=== PATIENT | male | born 1935 | race Caucasian/White ===

== ENCOUNTER 2016-12-01 10:47 | Inpatient (IN) | payer OTHER ==
[~2016-12-01] VITALS: Ht 172.7 cm; Wt 65.9 kg
[~2016-12-01 10:47] MED LIST: AML5T PO; ATOR20TA PO; CLOP75TA41 PO; GLIP-115 PO
[2016-12-01] MEDS ORDERED: SODIUM CHLORIDE 0.9% 1,000 ML IV ONE (14:19)
[2016-12-01 14:28] LABS: Basophils # (auto) 0 uL; Basophils % (auto) 0.5 % (0.0-2.0); Eosinophils # (auto) 0 uL; Eosinophils % (auto) 0.2 % (0.0-7.0); Hematocrit 36.2 % (41.0-53.0); Hemoglobin 11.8 g/dL (13.5-17.5); Lymphocytes # (auto) 0.6 uL; Lymphocytes % (auto) 7.4 % (10.0-50.0); Mean Corpuscular Hemoglobin 31.1 pg (28.0-32.0); Mean Corpuscular Hgb Conc. 32.7 g/dL (32.0-36.0); Mean Corpuscular Volume 95.2 fL (80.0-100.0); Mean Platelet Volume 8.1 fL (7.4-10.4); Monocytes # (auto) 0.4 uL; Monocytes % (auto) 4.6 % (0.0-12.0); Neutrophils # (auto) 6.9 uL; Neutrophils % (auto) 87.3 % (37.0-80.0); Platelet Count (auto) 151 10^3/uL (140-450); Red Cell Distribution Width 16.1 % (11.6-16.0); White Blood Cell 7.9 10^3/uL (4.4-10.8)
[2016-12-01 14:57] LABS: INR 1.04 (0.9-1.15); Partial Thromboplastin Time 25.3 sec (22.64-33.71); Prothrombin Time 10.7 sec (9.37-12.3)
[2016-12-01 15:06] LABS: BUN/Creatinine Ratio 15.5; Calcium 9.6 mg/dL (8.5-10.1); Potassium 4.5 mmol/L (3.5-5.1)
[2016-12-01 15:19] LABS: Magnesium 2.4 mg/dL (1.6-2.6)
[2016-12-01 16:13] LABS: Urine Bilirubin Negative (Negative); Urine Blood TRACE /uL (Negative); Urine Color Yellow (Yellow); Urine Glucose Normal (Normal); Urine Ketone Negative (Negative); Urine Nitrite Negative (Negative); Urine RBC 4 /hpf (0 - 3); Urine Squamous Epithelial Cell FEW /hpf (<5); Urine Urobilinogen Normal (Negative)
[2016-12-01] MEDS ORDERED: HYDROcodone-ACET 5/325MG TAB PO PRN (17:45)
[2016-12-01] MEDS ORDERED: ONDANSETRON HCL 4 MG/2 ML VIAL IV PRN (17:45)
[2016-12-01] MEDS ORDERED: ACETAMINOPHEN 325 MG TAB PO PRN (17:45)
[2016-12-01] MEDS ORDERED: TEMAZEPAM 15 MG CAP PO PRN (17:45)
[2016-12-01] MEDS ORDERED: DOCUSATE SOD 100 MG CAP PO PRN (17:45)
[2016-12-01] MEDS ORDERED: DEXTROSE (50%) 50ML SYRG IV PRN (17:45)
[2016-12-01] MEDS ORDERED: NITROGLYCERIN 0.4 MG SL TAB SL PRN (17:45)
[2016-12-01] MEDS ORDERED: MORPHINE SULF INJ 2 MG/ML SYRINGE 1ML IV PRN ×2 (17:45)
[2016-12-01] MEDS ORDERED: CLOPIDOGREL BISULFATE 75 MG TAB PO ONE (18:00)
[2016-12-01] MEDS ORDERED: amLODIPine BESYLATE 5 MG TAB PO ONE (18:00)
[2016-12-01] MEDS ORDERED: MULTIPLE VITAMIN TAB PO ONE (18:15)
[2016-12-01] MEDS: glipiZIDE 5 MG TAB PO SCH (18:29)
[2016-12-01] MEDS ORDERED: ENOXAPARIN SOD 40 MG/0.4 ML SYRINGE SC SCH (18:30)
[2016-12-01 19:50] VITALS: BP 160/73
[2016-12-01] MEDS: ATORVASTATIN 20 MG TAB PO SCH (21:41)
[2016-12-01] MEDS: FAMOTIDINE 20 MG TAB PO SCH (21:45)
[2016-12-01] MEDS: SODIUM CHLOR 0.9% PF (SALINE LOCK) 10ML VIAL IV SCH (21:45)
[2016-12-01] MEDS: ACCU-CHEK COMFORT CURVE STRIP VI SCH (21:52)
[2016-12-01] MEDS: InsuLIN REG 1unit/0.01ml Soln (100units/ml) SC SCH (21:53)
[2016-12-01 22:06] VITALS: BP 160/73
[2016-12-02 05:04] VITALS: BP 105/62
[2016-12-02 05:45] LABS: Basophils # (auto) 0 uL; Basophils % (auto) 0.3 % (0.0-2.0); Eosinophils # (auto) 0.1 uL; Eosinophils % (auto) 0.9 % (0.0-7.0); Hematocrit 30.7 % (41.0-53.0); Hemoglobin 10.2 g/dL (13.5-17.5); Lymphocytes % (auto) 16.5 % (10.0-50.0); Mean Corpuscular Hemoglobin 31.7 pg (28.0-32.0); Mean Corpuscular Hgb Conc. 33.4 g/dL (32.0-36.0); Mean Corpuscular Volume 94.9 fL (80.0-100.0); Monocytes # (auto) 0.5 uL; Monocytes % (auto) 9.2 % (0.0-12.0); Neutrophils # (auto) 4.4 uL; Neutrophils % (auto) 73.1 % (37.0-80.0); Platelet Count (auto) 158 10^3/uL (140-450); Red Cell Distribution Width 16.4 % (11.6-16.0)
[2016-12-02] MEDS: SODIUM CHLOR 0.9% PF (SALINE LOCK) 10ML VIAL IV SCH ×4 (06:14→22:00)
[2016-12-02] MEDS: ACCU-CHEK COMFORT CURVE STRIP VI SCH ×4 (06:17→21:32)
[2016-12-02] MEDS: InsuLIN REG 1unit/0.01ml Soln (100units/ml) SC SCH ×4 (06:17→21:32)
[2016-12-02 06:21] LABS: Albumin 3.8 g/dL (3.4-5.0); BUN/Creatinine Ratio 18.5; Bilirubin, Total 0.7 mg/dL (0.2-1.0); Calcium 8.9 mg/dL (8.5-10.1); Potassium 4.4 mmol/L (3.5-5.1); Total Protein 7.1 g/dL (6.4-8.2)
[2016-12-02] MEDS: glipiZIDE 5 MG TAB PO SCH (06:23)
[2016-12-02 09:00] VITALS: BP 139/78
[2016-12-02 11:17] LABS: Phosphorus 3.5 mg/dL (2.5-4.90); Uric Acid 3.7 mg/dL (3.5-7.2)
[2016-12-02] MEDS: MULTIPLE VITAMIN TAB PO SCH (11:36)
[2016-12-02] MEDS: ENOXAPARIN SOD 30 MG/0.3 ML SYRINGE SC SCH (11:36)
[2016-12-02] MEDS: CLOPIDOGREL BISULFATE 75 MG TAB PO SCH (11:36)
[2016-12-02] MEDS: FAMOTIDINE 20 MG TAB PO SCH ×2 (11:36→21:26)
[2016-12-02] MEDS: amLODIPine BESYLATE 5 MG TAB PO SCH (11:38)
[2016-12-02 13:00] VITALS: BP 153/84
[2016-12-02 17:00] VITALS: BP 141/72
[2016-12-02 21:14] LABS: Vitamin B12 298 pg/mL (211-911)
[2016-12-02 21:15] LABS: Temperature: 21.6 C (20.0-25.0)
[2016-12-02] MEDS: ATORVASTATIN 20 MG TAB PO SCH (21:26)
[2016-12-02 22:00] VITALS: BP 163/76
[2016-12-03] MEDS: SODIUM CHLOR 0.9% PF (SALINE LOCK) 10ML VIAL IV SCH ×2 (06:00→06:23)
[2016-12-03] MEDS: ACCU-CHEK COMFORT CURVE STRIP VI SCH ×2 (06:42→11:30)
[2016-12-03] MEDS: InsuLIN REG 1unit/0.01ml Soln (100units/ml) SC SCH ×2 (06:42→11:30)
[2016-12-03 07:50] LABS: Albumin 3.6 g/dL (3.4-5.0); BUN/Creatinine Ratio 21.2; Bilirubin, Total 0.6 mg/dL (0.2-1.0); Potassium 4.1 mmol/L (3.5-5.1); Total Protein 7.1 g/dL (6.4-8.2)
[2016-12-03] MEDS ORDERED: HALOPERIDOL LACTATE 5 MG/ML INJ VIAL IM PRN (08:30)
[2016-12-03] MEDS: FAMOTIDINE 20 MG TAB PO SCH (10:08)
[2016-12-03] MEDS: ENOXAPARIN SOD 30 MG/0.3 ML SYRINGE SC SCH (10:08)
[2016-12-03] MEDS: MULTIPLE VITAMIN TAB PO SCH (10:08)
[2016-12-03] MEDS: CLOPIDOGREL BISULFATE 75 MG TAB PO SCH (10:09)
[2016-12-03] MEDS: amLODIPine BESYLATE 5 MG TAB PO SCH (10:09)
[2016-12-03 12:06] VITALS: BP 151/76
[2016-12-04 22:10] LABS: Vitamin D 25-Hydroxy 26 ng/mL (.); Vitamin D-2 25-Hydroxy <1.0 ng/mL (.)
== END 2016-12-03 13:10 | disposition home or self-care (01) | DRG 65 ==
LOC: ER 10:48 → TELE 10:59 → TELE-EAST 19:40
PROVIDERS: ADMIT Internal Medicine; ATTEND Family Medicine
DX: I63.9 Cerebral infarction, unspecified (principal); I25.810 Atherosclerosis of coronary artery bypass graft(s) without angina pectoris; N17.9 Acute kidney failure, unspecified; G81.94 Hemiplegia, unspecified affecting left nondominant side; E11.649 Type 2 diabetes mellitus with hypoglycemia without coma; G30.9 Alzheimer's disease, unspecified; F02.80 Dementia in other diseases classified elsewhere, unspecified severity, without behavioral disturbance, psychotic disturbance, mood disturbance, and anxiety; E11.21 Type 2 diabetes mellitus with diabetic nephropathy; Z95.0 Presence of cardiac pacemaker; Z86.2 Personal history of diseases of the blood and blood-forming organs and certain disorders involving the immune mechanism; D63.8 Anemia in other chronic diseases classified elsewhere; E11.22 Type 2 diabetes mellitus with diabetic chronic kidney disease; E78.5 Hyperlipidemia, unspecified; E86.0 Dehydration; I12.9 Hypertensive chronic kidney disease with stage 1 through stage 4 chronic kidney disease, or unspecified chronic kidney disease; I25.119 Atherosclerotic heart disease of native coronary artery with unspecified angina pectoris; N18.3 Chronic kidney disease, stage 3 (moderate); Z82.49 Family history of ischemic heart disease and other diseases of the circulatory system; Z83.3 Family history of diabetes mellitus; M10.9 Gout, unspecified; Z80.0 Family history of malignant neoplasm of digestive organs; Z85.828 Personal history of other malignant neoplasm of skin; Z86.73 Personal history of transient ischemic attack (TIA), and cerebral infarction without residual deficits
CPT/HCPCS: 36415; 70450; 71020; 76775; 80048; 80053; 80320; 81001; 82043; 82306; 82570; 82607; 82746; 82962; 83036; 83735; 83970; 84100; 84300; 84443; 84484; 84550; 85025; 85049; 85379; 85610; 85730; 92610; 93005; 93306; 93886; 96360; 96361

== ENCOUNTER → 2017-04-30 | Outpatient (CLI) | payer OTHER | END | disposition home or self-care (01) | LOC: XYW 10:54 | PROVIDERS: ATTEND Internal Medicine Cardiovascular Disease | DX: I08.3 Combined rheumatic disorders of mitral, aortic and tricuspid valves (principal); I27.2 Other secondary pulmonary hypertension | CPT/HCPCS: 93306 ==

== ENCOUNTER → 2017-09-18 | Outpatient (CLI) | payer OTHER ==
[2017-09-18 12:29] LABS: Basophils # (auto) 0 uL; Basophils % (auto) 0.5 % (0.0-2.0); Eosinophils # (auto) 0.1 uL; Eosinophils % (auto) 1.3 % (0.0-7.0); Hematocrit 36.5 % (41.0-53.0); Hemoglobin 12.7 g/dL (13.5-17.5); Lymphocytes # (auto) 0.7 uL; Lymphocytes % (auto) 10.4 % (10.0-50.0); Mean Corpuscular Hemoglobin 33.7 pg (28.0-32.0); Mean Corpuscular Hgb Conc. 34.8 g/dL (32.0-36.0); Mean Corpuscular Volume 96.8 fL (80.0-100.0); Monocytes # (auto) 0.4 uL; Monocytes % (auto) 5.3 % (0.0-12.0); Neutrophils # (auto) 5.8 uL; Neutrophils % (auto) 82.5 % (37.0-80.0); Nucleated Red Blood Cells % 0.1 %; Platelet Count (auto) 154 10^3/uL (140-450); Red Blood Cells 3.77 10^6/uL (4.5-5.90); Red Cell Distribution Width 14.1 % (11.8-14.3)
[2017-09-18 12:39] LABS: Urine Bacteria NONE SEEN /hpf (None Seen); Urine Blood 1+ /uL (Negative); Urine Mucus FEW (None Seen); Urine Specific Gravity 1.015 (1.001-1.035); Urine WBC 1 /hpf (0 - 3)
[2017-09-18 13:03] LABS: Albumin 4.5 g/dL (3.4-5.0); BUN/Creatinine Ratio 17.6; Bilirubin, Total 0.8 mg/dL (0.2-1.0); Calcium 9.6 mg/dL (8.5-10.1); Potassium 4.7 mmol/L (3.5-5.1); Total Protein 8.5 g/dL (6.4-8.2)
== END | disposition home or self-care (01) ==
LOC: LAB 12:04
PROVIDERS: ATTEND Family Medicine
DX: E11.9 Type 2 diabetes mellitus without complications (principal); I10 Essential (primary) hypertension; E11.69 Type 2 diabetes mellitus with other specified complication; E78.5 Hyperlipidemia, unspecified; Z79.899 Other long term (current) drug therapy
CPT/HCPCS: 36415; 80053; 80061; 81001; 82306; 82607; 83036; 85025

== ENCOUNTER → 2017-10-23 | Outpatient (CLI) | payer OTHER | END | disposition home or self-care (01) | LOC: LAB 08:37 | PROVIDERS: ATTEND Physician Assistant | DX: C44.229 Squamous cell carcinoma of skin of left ear and external auricular canal (principal) ==

== ENCOUNTER 2018-03-17 16:39 | Emergency (ER) | payer OTHER ==
[~2018-03-17] VITALS: Ht 167.6 cm; Wt 70.3 kg
[2018-03-17 17:56] LABS: Alanine Aminotransferase 13 U/L (16-61); Albumin 3.8 g/dL (3.4-5.0); Alkaline Phosphatase 128 U/L (45-117); Anion Gap 7 (5-15); Aspartate Aminotransferase 12 U/L (15-37); BUN/Creatinine Ratio 15.5; Bilirubin, Total 0.6 mg/dL (0.2-1.0); Blood Urea Nitrogen 27 mg/dL (7-18); Calcium 8.6 mg/dL (8.5-10.1); Carbon Dioxide 26 mmol/L (21-32); Chloride 106 mmol/L (98-107); GFR African American 49 mL/min; GFR Non-African American 40 mL/min; Glucose 125 mg/dL (74-106); Magnesium 2.4 mg/dL (1.6-2.6); Potassium 4.1 mmol/L (3.5-5.1); Sodium 139 mmol/L (136-145); Total Protein 7.8 g/dL (6.4-8.2)
[2018-03-17 18:01] LABS: Basophils # (auto) 0 uL; Basophils % (auto) 0.5 % (0.0-2.0); Eosinophils # (auto) 0.2 uL; Eosinophils % (auto) 2.2 % (0.0-7.0); Hematocrit 31.8 % (41.0-53.0); Hemoglobin 11.1 g/dL (13.5-17.5); Lymphocytes # (auto) 0.6 uL; Lymphocytes % (auto) 8.4 % (10.0-50.0); Mean Corpuscular Hemoglobin 33.8 pg (28.0-32.0); Mean Corpuscular Hgb Conc. 34.9 g/dL (32.0-36.0); Mean Corpuscular Volume 96.8 fL (80.0-100.0); Monocytes # (auto) 0.4 uL; Monocytes % (auto) 5.1 % (0.0-12.0); Neutrophils # (auto) 6.4 uL; Neutrophils % (auto) 83.8 % (37.0-80.0); Platelet Count (auto) 151 10^3/uL (140-450); Red Blood Cells 3.28 10^6/uL (4.5-5.90); Red Cell Distribution Width 14.4 % (11.8-14.3); White Blood Cell 7.6 10^3/uL (4.4-10.8)
[2018-03-17 19:00] VITALS: BP 172/86
[2018-03-17] MEDS ORDERED: diphenhdrAMINE HCL 50 MG/1 ML VL IV ONE (23:00)
[2018-03-17] MEDS ORDERED: diphenhdrAMINE HCL 50 MG/1 ML VL ONE (23:05)
== END 2018-03-18 01:24 | disposition left against medical advice (07) ==
LOC: ER 16:42
DX: R06.02 Shortness of breath (principal); R53.1 Weakness; N28.9 Disorder of kidney and ureter, unspecified; I10 Essential (primary) hypertension; I25.2 Old myocardial infarction; E11.9 Type 2 diabetes mellitus without complications; M10.9 Gout, unspecified; E78.5 Hyperlipidemia, unspecified; Z95.1 Presence of aortocoronary bypass graft; Z90.89 Acquired absence of other organs; Z95.0 Presence of cardiac pacemaker; Z53.29 Procedure and treatment not carried out because of patient's decision for other reasons
CPT/HCPCS: 36415; 71046; 80053; 83735; 83880; 84484; 85025; 85379; 93005; 94761; 96374; 99285; J1200

== ENCOUNTER 2018-07-15 15:30 | Inpatient (IN) | payer OTHER ==
[~2018-07-15] VITALS: Ht 167.6 cm; Wt 57.8 kg
[~2018-07-15 15:30] MED LIST changes: +ALBUAER3 IN; +ALL300T PO; -AML5T PO; +AMOX-263 PO; +ASPI81CH59 PO; +CAR3125T PO; +DONE5TAB78 PO; +FURO40TA PO; +HYDR-4683 PO; +PANT40T PO; +POTA20TA53 PO; +SACC250C PO
[2018-07-15] MEDS ORDERED: SODIUM CHLORIDE 0.9% 1,000 ML IV ONE (15:40)
[2018-07-15 16:29] LABS: Basophils # (auto) 0.1 uL; Eosinophils # (auto) 0.2 uL; Hemoglobin 11.3 g/dL (13.5-17.5); Lymphocytes # (auto) 1.1 uL; Platelet Count (auto) 131 10^3/uL (140-450)
[2018-07-15 16:30] LABS: Basophils % (auto) 0.6 % (0.0-2.0); Eosinophils % (auto) 2.7 % (0.0-7.0); Hematocrit 32.4 % (41.0-53.0); Mean Corpuscular Hemoglobin 35.1 pg (28.0-32.0); Mean Corpuscular Volume 100.4 fL (80.0-100.0); Monocytes # (auto) 0.6 uL; Monocytes % (auto) 6.9 % (0.0-12.0); Neutrophils # (auto) 6.3 uL; Neutrophils % (auto) 76.8 % (37.0-80.0); Nucleated Red Blood Cells % 0.1 %; Red Blood Cells 3.22 10^6/uL (4.5-5.90); Red Cell Distribution Width 17.4 % (11.8-14.3); White Blood Cell 8.2 10^3/uL (4.4-10.8)
[2018-07-15 16:42] LABS: Albumin 3.8 g/dL (3.4-5.0); BUN/Creatinine Ratio 29.6; Calcium 8.7 mg/dL (8.5-10.1); Magnesium 2.5 mg/dL (1.6-2.6); Potassium 4.4 mmol/L (3.5-5.1)
[2018-07-15] MEDS ORDERED: HYDROcodone-ACET 5/325MG TAB PO PRN (16:45)
[2018-07-15] MEDS ORDERED: NITROGLYCERIN 0.4 MG SL TAB SL PRN (16:45)
[2018-07-15] MEDS ORDERED: DEXTROSE (50%) 50ML SYRG IV PRN (16:45)
[2018-07-15] MEDS ORDERED: ACETAMINOPHEN 325 MG TAB PO PRN (16:45)
[2018-07-15] MEDS ORDERED: ONDANSETRON HCL 4 MG/2 ML VIAL IV PRN (16:45)
[2018-07-15] MEDS ORDERED: MORPHINE SULF INJ 2 MG/ML SYRINGE 1ML IV PRN (16:45)
[2018-07-15] MEDS ORDERED: DOCUSATE SOD 100 MG CAP PO PRN (16:45)
[2018-07-15 16:47] LABS: Bilirubin, Total 0.6 mg/dL (0.2-1.0); Total Protein 7.9 g/dL (6.4-8.2)
[2018-07-15] MEDS: InsuLIN REG 1unit/0.01ml Soln (100units/ml) SC SCH ×2 (17:00→21:39)
[2018-07-15 17:12] LABS: Partial Thromboplastin Time 25.9 sec (23.78-33.04); Prothrombin Time 10.7 sec (9.27-12.13)
[2018-07-15] MEDS: ACCU-CHEK COMFORT CURVE STRIP VI SCH ×2 (17:12→21:39)
[2018-07-15] MEDS ORDERED: POTASSIUM CHL 20 Meq TABLET PO ONE (17:15)
[2018-07-15] MEDS ORDERED: MULTIPLE VITAMIN TAB PO ONE (17:15)
[2018-07-15] MEDS ORDERED: FUROSEMIDE 40 MG TAB PO ONE (17:15)
[2018-07-15] MEDS ORDERED: PANTOPRAZOLE 40 MG TAB PO ONE (17:15)
[2018-07-15] MEDS ORDERED: ZINC SULFATE 220mg CAP or TAB PO ONE (17:15)
[2018-07-15] MEDS: ALBUTEROL SULF 2.5 MG/0.5ML(0.5%) NEB SOLN NEB SCH ×2 (17:48→23:24)
[2018-07-15] MEDS: glipiZIDE 5 MG TAB PO SCH (18:00)
[2018-07-15 21:00] VITALS: BP 154/58
[2018-07-15] MEDS: SODIUM CHLORIDE 0.9% 1,000 ML IV SCH ×2 (21:00)
[2018-07-15] MEDS: FAMOTIDINE 20 MG TAB PO SCH (21:47)
[2018-07-15] MEDS: ATORVASTATIN 20 MG TAB PO SCH (21:47)
[2018-07-15] MEDS: DONEPEZIL HYDROCHLORIDE 5 MG TAB PO SCH (21:48)
[2018-07-15] MEDS: TEMAZEPAM 15 MG CAP PO PRN (21:48)
[2018-07-15] MEDS: ASCORBIC ACID 500 MG TAB PO SCH (21:48)
[2018-07-15] MEDS: ALLOPURINOL 300 MG TAB PO SCH (21:48)
[2018-07-15] MEDS: SODIUM CHLOR 0.9% PF (SALINE LOCK) 10ML VIAL/SYR IV SCH (21:49)
[2018-07-15] MEDS: CARVEDILOL 3.125 MG TAB PO SCH (21:50)
[2018-07-15] MEDS ORDERED: TEMA15CA91 PO (22:59)
[2018-07-15] MEDS ORDERED: LORA-654 PO (22:59)
[2018-07-15] MEDS ORDERED: ASPI81CH43 PO (22:59)
[2018-07-15] MEDS ORDERED: DONE5TAB11 PO (22:59)
[2018-07-15] MEDS ORDERED: ATOR20TA50 PO (22:59)
[2018-07-15] MEDS ORDERED: CAR3125T PO (22:59)
[2018-07-15] MEDS ORDERED: LORazepam 2MG/ML-1ML VIAL ONE (23:04)
[2018-07-15] MEDS ORDERED: LORazepam 2MG/ML-1ML VIAL IV PRN (23:15)
[2018-07-16] VITALS: BP 147/55
[2018-07-16 04:00] VITALS: BP 123/48
[2018-07-16] MEDS: MORPHINE SULF INJ 2 MG/ML SYRINGE 1ML IV PRN (04:32)
[2018-07-16 05:07] LABS: Basophils # (auto) 0 uL; Eosinophils # (auto) 0.2 uL; Hemoglobin 9.4 g/dL (13.5-17.5); Lymphocytes # (auto) 0.9 uL; Monocytes # (auto) 0.3 uL; Neutrophils # (auto) 4.9 uL
[2018-07-16 05:09] LABS: Basophils % (auto) 0.7 % (0.0-2.0); Hematocrit 26.9 % (41.0-53.0); Lymphocytes % (auto) 14.5 % (10.0-50.0); Mean Corpuscular Hemoglobin 34.6 pg (28.0-32.0); Mean Corpuscular Hgb Conc. 34.8 g/dL (32.0-36.0); Mean Corpuscular Volume 99.5 fL (80.0-100.0); Monocytes % (auto) 5.4 % (0.0-12.0); Neutrophils % (auto) 76.4 % (37.0-80.0); Nucleated Red Blood Cells % 0.1 %; Platelet Count (auto) 99 10^3/uL (140-450); Red Blood Cells 2.71 10^6/uL (4.5-5.90); Red Cell Distribution Width 16.9 % (11.8-14.3); White Blood Cell 6.4 10^3/uL (4.4-10.8)
[2018-07-16 05:20] LABS: INR 1.06 (0.9-1.15); Prothrombin Time 11.3 sec (9.27-12.13)
[2018-07-16 05:33] LABS: Albumin 3.3 g/dL (3.4-5.0); BUN/Creatinine Ratio 30.6; Bilirubin, Total 0.6 mg/dL (0.2-1.0); Calcium 7.9 mg/dL (8.5-10.1); Potassium 4.2 mmol/L (3.5-5.1); Total Protein 6.6 g/dL (6.4-8.2)
[2018-07-16] MEDS: ALBUTEROL SULF 2.5 MG/0.5ML(0.5%) NEB SOLN NEB SCH ×3 (06:23→18:36)
[2018-07-16] MEDS: SODIUM CHLOR 0.9% PF (SALINE LOCK) 10ML VIAL/SYR IV SCH ×3 (06:36→21:26)
[2018-07-16] MEDS: ACCU-CHEK COMFORT CURVE STRIP VI SCH ×4 (06:45→21:28)
[2018-07-16] MEDS: glipiZIDE 5 MG TAB PO SCH ×2 (06:46→18:02)
[2018-07-16] MEDS: InsuLIN REG 1unit/0.01ml Soln (100units/ml) SC SCH ×4 (06:46→22:00)
[2018-07-16 08:00] VITALS: BP 129/56
[2018-07-16] MEDS: CARVEDILOL 3.125 MG TAB PO SCH (09:39)
[2018-07-16] MEDS: ZINC SULFATE 220mg CAP or TAB PO SCH (10:03)
[2018-07-16] MEDS: FLORASTOR (S. BOULARDII) 250 MG CAP PO SCH (10:03)
[2018-07-16] MEDS: MULTIPLE VITAMIN TAB PO SCH (10:03)
[2018-07-16] MEDS: ALLOPURINOL 300 MG TAB PO SCH (10:03)
[2018-07-16] MEDS: ASCORBIC ACID 500 MG TAB PO SCH ×3 (10:03→22:00)
[2018-07-16] MEDS: PANTOPRAZOLE 40 MG TAB PO SCH (10:04)
[2018-07-16] MEDS: SODIUM CHLORIDE 0.9% 1,000 ML IV SCH ×3 (11:45→23:14)
[2018-07-16 12:00] VITALS: BP 149/47
[2018-07-16] MEDS ORDERED: fentaNYL CITRATE 100 MCG/2 ML VL ONE (14:35)
[2018-07-16] MEDS ORDERED: VANCOMYCIN HCL 1000 MG VL ONE (14:35)
[2018-07-16] MEDS ORDERED: VANCOMYCIN 1GM/250ML 250 ML IV ONE (14:36)
[2018-07-16] MEDS ORDERED: MIDAZOLAM HCL 1MG/1ML-2 ML VIAL ONE (14:36)
[2018-07-16] MEDS ORDERED: LIDOCAINE 2%HCL (LOCAL ANESTH.) INJ 20ML MDV ONE (14:45)
[2018-07-16] MEDS ORDERED: BACITRACIN INJ 50000 UNIT VIAL ONE (14:59)
[2018-07-16] MEDS ORDERED: DOXYCYCLINE 100MG/250ML 250 ML IV SCH (16:30)
[2018-07-16] MEDS: POTASSIUM CHL 20 Meq TABLET PO SCH (17:58)
[2018-07-16] MEDS: FUROSEMIDE 40 MG TAB PO SCH (17:59)
[2018-07-16] MEDS: DOXYCYCLINE 100MG/250ML 250 ML IV SCH (18:01)
[2018-07-16 20:00] VITALS: BP 157/75
[2018-07-16] MEDS: FAMOTIDINE 20 MG TAB PO SCH ×2 (21:27→22:00)
[2018-07-16] MEDS: ATORVASTATIN 20 MG TAB PO SCH ×2 (21:27→22:00)
[2018-07-16] MEDS: DONEPEZIL HYDROCHLORIDE 5 MG TAB PO SCH ×2 (21:27→22:00)
[2018-07-16] MEDS: TEMAZEPAM 15 MG CAP PO PRN (22:29)
[2018-07-16] MEDS: VANCOMYCIN 1GM/250ML 250 ML IV SCH (23:14)
[2018-07-16] MEDS ORDERED: HALOPERIDOL LACTATE 5 MG/ML INJ VIAL IM ONE (23:30)
[2018-07-16] MEDS ORDERED: HALOPERIDOL LACTATE 5 MG/ML INJ VIAL ONE (23:34)
[2018-07-17] MEDS: ALBUTEROL SULF 2.5 MG/0.5ML(0.5%) NEB SOLN NEB SCH ×4 (00:15→18:25)
[2018-07-17 00:47] VITALS: BP 161/60
[2018-07-17] MEDS: MORPHINE SULF INJ 2 MG/ML SYRINGE 1ML IV PRN ×2 (02:31→03:49)
[2018-07-17 04:00] VITALS: BP 151/65
[2018-07-17 05:24] LABS: Lymphocytes # (auto) 0.3 uL; Lymphocytes % (auto) 3.2 % (10.0-50.0); Neutrophils # (auto) 8.2 uL
[2018-07-17 05:27] LABS: Basophils # (auto) 0.1 uL; Basophils % (auto) 0.6 % (0.0-2.0); Eosinophils # (auto) 0.1 uL; Eosinophils % (auto) 1.6 % (0.0-7.0); Hemoglobin 10.2 g/dL (13.5-17.5); Mean Corpuscular Hemoglobin 34.8 pg (28.0-32.0); Mean Corpuscular Hgb Conc. 35.3 g/dL (32.0-36.0); Mean Corpuscular Volume 98.4 fL (80.0-100.0); Monocytes # (auto) 0.3 uL; Monocytes % (auto) 3.5 % (0.0-12.0); Neutrophils % (auto) 91.1 % (37.0-80.0); Platelet Count (auto) 112 10^3/uL (140-450); Red Blood Cells 2.95 10^6/uL (4.5-5.90); Red Cell Distribution Width 16.4 % (11.8-14.3)
[2018-07-17 05:47] LABS: BUN/Creatinine Ratio 28.4; Calcium 8.5 mg/dL (8.5-10.1)
[2018-07-17] MEDS: InsuLIN REG 1unit/0.01ml Soln (100units/ml) SC SCH ×4 (06:27→22:00)
[2018-07-17] MEDS: glipiZIDE 5 MG TAB PO SCH ×2 (06:27→18:19)
[2018-07-17] MEDS: ACCU-CHEK COMFORT CURVE STRIP VI SCH ×4 (06:27→22:21)
[2018-07-17] MEDS: DOXYCYCLINE 100MG/250ML 250 ML IV SCH ×2 (06:27→18:19)
[2018-07-17] MEDS: SODIUM CHLOR 0.9% PF (SALINE LOCK) 10ML VIAL/SYR IV SCH ×3 (06:28→22:20)
[2018-07-17] MEDS: POTASSIUM CHL 20 Meq TABLET PO SCH (11:59)
[2018-07-17] MEDS: ZINC SULFATE 220mg CAP or TAB PO SCH (11:59)
[2018-07-17] MEDS: PANTOPRAZOLE 40 MG TAB PO SCH (11:59)
[2018-07-17] MEDS: FLORASTOR (S. BOULARDII) 250 MG CAP PO SCH (11:59)
[2018-07-17 12:00] VITALS: BP 136/68
[2018-07-17] MEDS: ASCORBIC ACID 500 MG TAB PO SCH ×2 (12:00→22:21)
[2018-07-17] MEDS: CLOPIDOGREL BISULFATE 75 MG TAB PO SCH (12:00)
[2018-07-17] MEDS: ALLOPURINOL 300 MG TAB PO SCH (12:00)
[2018-07-17] MEDS: MULTIPLE VITAMIN TAB PO SCH (12:00)
[2018-07-17] MEDS: FUROSEMIDE 40 MG TAB PO SCH (12:01)
[2018-07-17 16:00] VITALS: BP 139/58
[2018-07-17 20:00] VITALS: BP 127/56
[2018-07-17 22:00] VITALS: BP 147/63
[2018-07-17] MEDS: ATORVASTATIN 20 MG TAB PO SCH (22:20)
[2018-07-17] MEDS: DONEPEZIL HYDROCHLORIDE 5 MG TAB PO SCH (22:20)
[2018-07-17] MEDS: FAMOTIDINE 20 MG TAB PO SCH (22:20)
[2018-07-17] MEDS: VANCOMYCIN 1GM/250ML 250 ML IV SCH (22:21)
[2018-07-18] MEDS: ALBUTEROL SULF 2.5 MG/0.5ML(0.5%) NEB SOLN NEB SCH ×3 (01:00→13:58)
[2018-07-18] MEDS: MORPHINE SULF INJ 2 MG/ML SYRINGE 1ML IV PRN (02:38)
[2018-07-18] MEDS: DOXYCYCLINE 100MG/250ML 250 ML IV SCH (06:23)
[2018-07-18] MEDS: glipiZIDE 5 MG TAB PO SCH (06:23)
[2018-07-18] MEDS: SODIUM CHLOR 0.9% PF (SALINE LOCK) 10ML VIAL/SYR IV SCH (06:23)
[2018-07-18] MEDS: ACCU-CHEK COMFORT CURVE STRIP VI SCH ×2 (06:24→14:20)
[2018-07-18] MEDS: InsuLIN REG 1unit/0.01ml Soln (100units/ml) SC SCH ×2 (06:24→11:30)
[2018-07-18 06:29] LABS: Eosinophils % (auto) 2.4 % (0.0-7.0); Lymphocytes % (auto) 8.3 % (10.0-50.0); Monocytes % (auto) 6.9 % (0.0-12.0); Neutrophils % (auto) 81.6 % (37.0-80.0); White Blood Cell 7.5 10^3/uL (4.4-10.8)
[2018-07-18 06:30] LABS: Basophils # (auto) 0.8 uL; Basophils % (auto) 0.8 % (0.0-2.0); Eosinophils # (auto) 0.2 uL; Hematocrit 29.8 % (41.0-53.0); Hemoglobin 10.2 g/dL (13.5-17.5); Lymphocytes # (auto) 0.6 uL; Mean Corpuscular Hgb Conc. 34.4 g/dL (32.0-36.0); Mean Corpuscular Volume 101.9 fL (80.0-100.0); Monocytes # (auto) 0.5 uL; Neutrophils # (auto) 6.1 uL; Platelet Count (auto) 99 10^3/uL (140-450); Red Blood Cells 2.92 10^6/uL (4.5-5.90); Red Cell Distribution Width 17.3 % (11.8-14.3)
[2018-07-18 06:35] LABS: Anion Gap 10 (5-15); BUN/Creatinine Ratio 21.5; Blood Urea Nitrogen 39 mg/dL (7-18); Calcium 8.3 mg/dL (8.5-10.1); Carbon Dioxide 21 mmol/L (21-32); Chloride 105 mmol/L (98-107); GFR African American 46 mL/min; GFR Non-African American 38 mL/min; Glucose 86 mg/dL (74-106); Potassium 4.6 mmol/L (3.5-5.1); Sodium 136 mmol/L (136-145)
[2018-07-18] MEDS ORDERED: DOXY-216 PO (09:02)
[2018-07-18 09:04] VITALS: BP 121/58
[2018-07-18] MEDS: POTASSIUM CHL 20 Meq TABLET PO SCH (09:04)
[2018-07-18] MEDS: CLOPIDOGREL BISULFATE 75 MG TAB PO SCH (09:04)
[2018-07-18] MEDS: ASCORBIC ACID 500 MG TAB PO SCH (09:04)
[2018-07-18] MEDS: PANTOPRAZOLE 40 MG TAB PO SCH (09:04)
[2018-07-18] MEDS: ZINC SULFATE 220mg CAP or TAB PO SCH (09:04)
[2018-07-18] MEDS: FUROSEMIDE 40 MG TAB PO SCH (09:04)
[2018-07-18] MEDS: FLORASTOR (S. BOULARDII) 250 MG CAP PO SCH (09:05)
[2018-07-18] MEDS: MULTIPLE VITAMIN TAB PO SCH (09:05)
[2018-07-18] MEDS: ALLOPURINOL 300 MG TAB PO SCH (09:05)
[2018-07-18 11:25] VITALS: BP 121/58
== END 2018-07-18 13:50 | disposition home or self-care (01) | DRG 243 ==
LOC: ER 15:32 → OVERFLOW 15:33 → DOU IN ICU 20:57 → TELE-EAST 07-17 21:15
PROVIDERS: ADMIT Internal Medicine; ATTEND Internal Medicine
PROC: 4B02XSZ Measurement of Cardiac Pacemaker, External Approach (ICD-10-PCS; principal; 2018-07-16)
PROC: 0JH606Z Insertion of Pacemaker, Dual Chamber into Chest Subcutaneous Tissue and Fascia, Open Approach (ICD-10-PCS; 2018-07-18)
PROC: 02HK3JZ Insertion of Pacemaker Lead into Right Ventricle, Percutaneous Approach (ICD-10-PCS; 2018-07-18)
PROC: 0JPT0PZ Removal of Cardiac Rhythm Related Device from Trunk Subcutaneous Tissue and Fascia, Open Approach (ICD-10-PCS; 2018-07-18)
PROC: 02PA3MZ Removal of Cardiac Lead from Heart, Percutaneous Approach (ICD-10-PCS; 2018-07-18)
PROC: B5171ZZ Fluoroscopy of Left Subclavian Vein using Low Osmolar Contrast (ICD-10-PCS; 2018-07-18)
DX: T82.111A Breakdown (mechanical) of cardiac pulse generator (battery), initial encounter (principal); N18.4 Chronic kidney disease, stage 4 (severe); I13.0 Hypertensive heart and chronic kidney disease with heart failure and stage 1 through stage 4 chronic kidney disease, or unspecified chronic kidney disease; E11.21 Type 2 diabetes mellitus with diabetic nephropathy; E11.22 Type 2 diabetes mellitus with diabetic chronic kidney disease; E78.5 Hyperlipidemia, unspecified; F02.80 Dementia in other diseases classified elsewhere, unspecified severity, without behavioral disturbance, psychotic disturbance, mood disturbance, and anxiety; G30.9 Alzheimer's disease, unspecified; I25.10 Atherosclerotic heart disease of native coronary artery without angina pectoris; M10.9 Gout, unspecified; D63.8 Anemia in other chronic diseases classified elsewhere; D69.6 Thrombocytopenia, unspecified; I44.0 Atrioventricular block, first degree; I50.9 Heart failure, unspecified; Y71.2 Prosthetic and other implants, materials and accessory cardiovascular devices associated with adverse incidents; Z80.0 Family history of malignant neoplasm of digestive organs; Z82.49 Family history of ischemic heart disease and other diseases of the circulatory system; Z83.3 Family history of diabetes mellitus; Z86.73 Personal history of transient ischemic attack (TIA), and cerebral infarction without residual deficits; Z95.0 Presence of cardiac pacemaker; Z95.1 Presence of aortocoronary bypass graft; Z95.5 Presence of coronary angioplasty implant and graft; Z79.899 Other long term (current) drug therapy; Z79.82 Long term (current) use of aspirin; Z90.49 Acquired absence of other specified parts of digestive tract
CPT/HCPCS: 33216; 33228; 33235; 36415; 71045; 80048; 80053; 82962; 83036; 83735; 83880; 84443; 84484; 85025; 85610; 85730; 87081; 93005; 93306; 94640; 94761; 96360; 96361; 97163; 99152; A4565; A6257; C1785; J2250; J3490

== ENCOUNTER 2018-09-06 14:19 | Emergency (ER) | payer OTHER ==
[~2018-09-06] VITALS: Ht 167.6 cm; Wt 68.0 kg
[~2018-09-06 14:19] MED LIST changes: -AMOX-263 PO; +ASPI81CH43 PO; +ATOR20TA50 PO; -CAR3125T PO; +DONE5TAB11 PO; +DOXY-216 PO; +LORA-654 PO; +TEMA15CA91 PO
[2018-09-06] MEDS ORDERED: VANCOMYCIN 1GM/250ML 250 ML IV ONE (14:45)
[2018-09-06] MEDS ORDERED: cefTRIAXone 1GM/50ML D5W 50 ML IV ONE (14:45)
[2018-09-06] MEDS ORDERED: LIDOCAINE 2%HCL (LOCAL ANESTH.) INJ 10ml MDV IJ ONE ×2 (14:45→16:30)
[2018-09-06] MEDS ORDERED: LIDOCAINE 2% (LOCAL ANESTH.) PF 5ml SDV ONE ×2 (14:53→16:21)
[2018-09-06] MEDS ORDERED: NEOMYCIN-BACITRACIN-POLYM UNITDOSE PKG TOP OINT TOP ONE ×2 (15:45→16:44)
[2018-09-06] MEDS ORDERED: HYDROcodone-ACET 10/325MG TAB PO ONE (16:00)
[2018-09-06 18:08] VITALS: BP 160/64
== END 2018-09-06 18:39 | disposition home or self-care (01) ==
LOC: ER 14:19
DX: H92.02 Otalgia, left ear (principal); C44.209 Unspecified malignant neoplasm of skin of left ear and external auricular canal; E11.9 Type 2 diabetes mellitus without complications; M10.9 Gout, unspecified; E78.5 Hyperlipidemia, unspecified; I10 Essential (primary) hypertension; I25.2 Old myocardial infarction; Z90.89 Acquired absence of other organs; Z95.1 Presence of aortocoronary bypass graft; Z95.0 Presence of cardiac pacemaker; Z79.899 Other long term (current) drug therapy
CPT/HCPCS: 96365; 96368; 99284; J0696; J2001; J3370

== ENCOUNTER → 2018-09-08 | Outpatient (CLI) | payer OTHER, MEDICARE ==
[2018-09-08 10:48] LABS: Eosinophils # (auto) 0.2 uL; Hemoglobin 8.8 g/dL (13.5-17.5); Lymphocytes # (auto) 0.5 uL; Monocytes # (auto) 0.6 uL; Neutrophils # (auto) 7.5 uL; White Blood Cell 8.8 10^3/uL (4.4-10.8)
[2018-09-08 10:51] LABS: Basophils # (auto) 0 uL; Basophils % (auto) 0.4 % (0.0-2.0); Eosinophils % (auto) 2.2 % (0.0-7.0); Hematocrit 25.4 % (41.0-53.0); Lymphocytes % (auto) 5.2 % (10.0-50.0); Mean Corpuscular Hemoglobin 34.2 pg (28.0-32.0); Mean Corpuscular Hgb Conc. 34.5 g/dL (32.0-36.0); Mean Corpuscular Volume 99.1 fL (80.0-100.0); Monocytes % (auto) 7.2 % (0.0-12.0); Platelet Count (auto) 139 10^3/uL (140-450); Red Blood Cells 2.57 10^6/uL (4.5-5.90); Red Cell Distribution Width 14.5 % (11.8-14.3)
[2018-09-08 11:00] LABS: INR 0.94 (0.9-1.15); Partial Thromboplastin Time 25.2 sec (23.78-33.04); Prothrombin Time 10.1 sec (9.27-12.13)
[2018-09-08 11:18] LABS: Albumin 3.6 g/dL (3.4-5.0); Calcium 8.7 mg/dL (8.5-10.1); Potassium 4.5 mmol/L (3.5-5.1)
[2018-09-08 11:22] LABS: BUN/Creatinine Ratio 19.6; Bilirubin, Total 0.6 mg/dL (0.2-1.0); Total Protein 7.6 g/dL (6.4-8.2)
== END | disposition home or self-care (01) ==
LOC: LAB 10:16
PROVIDERS: ATTEND Family Medicine
DX: Z01.818 Encounter for other preprocedural examination (principal)
CPT/HCPCS: 36415; 80053; 85025; 85610; 85730

== ENCOUNTER → 2018-09-18 | Outpatient (CLI) | payer OTHER, MEDICARE ==
[2018-09-18 12:53] LABS: Hemoglobin 10.3 g/dL (13.5-17.5)
[2018-09-18 12:57] LABS: Basophils # (auto) 0.1 uL; Basophils % (auto) 0.7 % (0.0-2.0); Eosinophils # (auto) 0.1 uL; Eosinophils % (auto) 1.4 % (0.0-7.0); Lymphocytes # (auto) 0.5 uL; Lymphocytes % (auto) 4.6 % (10.0-50.0); Mean Corpuscular Hemoglobin 33.8 pg (28.0-32.0); Mean Corpuscular Hgb Conc. 34.3 g/dL (32.0-36.0); Mean Corpuscular Volume 98.4 fL (80.0-100.0); Monocytes # (auto) 0.4 uL; Monocytes % (auto) 3.8 % (0.0-12.0); Neutrophils # (auto) 9.5 uL; Neutrophils % (auto) 89.5 % (37.0-80.0); Platelet Count (auto) 199 10^3/uL (140-450); Red Blood Cells 3.05 10^6/uL (4.5-5.90); Red Cell Distribution Width 14.8 % (11.8-14.3); White Blood Cell 10.6 10^3/uL (4.4-10.8)
[2018-09-18 13:18] LABS: BUN/Creatinine Ratio 19.4; Calcium 8.4 mg/dL (8.5-10.1)
== END | disposition home or self-care (01) ==
LOC: LAB 11:50
PROVIDERS: ATTEND Family Medicine
DX: Z01.812 Encounter for preprocedural laboratory examination (principal); R89.9 Unspecified abnormal finding in specimens from other organs, systems and tissues; C44.229 Squamous cell carcinoma of skin of left ear and external auricular canal
CPT/HCPCS: 36415; 80048; 85025

== ENCOUNTER → 2019-08-10 | Outpatient (CLI) | payer OTHER ==
[~2019-08-10] MED LIST changes: +FURO1TAB31 PO; -FURO40TA PO; -GLIP-115 PO; +GLIP5TAB12 PO; -HYDR-4683 PO; +HYDR-4833 PO; -LORA-654 PO; +LORA0.5T12 PO; +POTA-220 PO; -POTA20TA53 PO
[2019-08-10 13:10] LABS: Albumin 4.4 g/dL (3.4-5.0); BUN/Creatinine Ratio 17.8; Basophils # (auto) 0.1 uL; Basophils % (auto) 1.6 % (0.0-2.0); Calcium 8.9 mg/dL (8.5-10.1); Eosinophils # (auto) 0.2 uL; Eosinophils % (auto) 2.5 % (0.0-7.0); Hematocrit 35.6 % (41.0-53.0); Hemoglobin 12.8 g/dL (13.5-17.5); Lymphocytes # (auto) 0.8 uL; Lymphocytes % (auto) 11.7 % (10.0-50.0); Mean Corpuscular Hemoglobin 34.1 pg (28.0-32.0); Mean Corpuscular Volume 94.8 fL (80.0-100.0); Monocytes # (auto) 0.3 uL; Monocytes % (auto) 4.6 % (0.0-12.0); Neutrophils # (auto) 5.5 uL; Neutrophils % (auto) 79.6 % (37.0-80.0); Nucleated Red Blood Cells % 0.2 %; Platelet Count (auto) 141 10^3/uL (140-450); Red Blood Cells 3.75 10^6/uL (4.5-5.90); Red Cell Distribution Width 14.6 % (11.8-14.3); White Blood Cell 6.9 10^3/uL (4.4-10.8)
[2019-08-10 13:14] LABS: Bilirubin, Total 1.1 mg/dL (0.2-1.0); Total Protein 8.4 g/dL (6.4-8.2)
== END | disposition home or self-care (01) ==
LOC: LAB 11:24
PROVIDERS: ATTEND Family Medicine
DX: D50.8 Other iron deficiency anemias (principal); E11.22 Type 2 diabetes mellitus with diabetic chronic kidney disease; I12.9 Hypertensive chronic kidney disease with stage 1 through stage 4 chronic kidney disease, or unspecified chronic kidney disease; N18.9 Chronic kidney disease, unspecified
CPT/HCPCS: 36415; 80053; 80061; 82607; 83036; 85025

== ENCOUNTER → 2020-08-22 | Outpatient (CLI) | payer OTHER ==
[~2020-08-22] MED LIST changes: -DOXY-216 PO; +DOXY-286 PO; -LORA0.5T12 PO; +LORA0.5T20 PO
[2020-08-22 15:14] LABS: Basophils # (auto) 0 10 ^3/uL (0-0.2); Basophils % (auto) 0.5 % (0.0-2.0); Eosinophils # (auto) 0.1 10 ^3/uL (0-0.8); Eosinophils % (auto) 1.2 % (0.0-7.0); Hematocrit 34.9 % (41.0-53.0); Lymphocytes # (auto) 0.6 10 ^3/uL (0.4-5.4); Lymphocytes % (auto) 9.3 % (10.0-50.0); Mean Corpuscular Hgb Conc. 34.5 g/dL (32.0-36.0); Mean Corpuscular Volume 98.5 fL (80.0-100.0); Monocytes # (auto) 0.4 10 ^3/uL (0-1.3); Monocytes % (auto) 6.2 % (0.0-12.0); Neutrophils % (auto) 82.8 % (37.0-80.0); Platelet Count (auto) 159 10^3/uL (140-450); Red Blood Cells 3.54 10^6/uL (4.5-5.90); Red Cell Distribution Width 14.1 % (11.8-14.3); White Blood Cell 6.1 10^3/uL (4.4-10.8)
[2020-08-22 15:26] LABS: Albumin 4.1 g/dL (3.4-5.0); Calcium 8.9 mg/dL (8.5-10.1); Potassium 4.2 mmol/L (3.5-5.1)
[2020-08-22 15:31] LABS: BUN/Creatinine Ratio 18.6; Bilirubin, Total 0.6 mg/dL (0.2-1.0); Total Protein 7.6 g/dL (6.4-8.2)
== END | disposition home or self-care (01) ==
LOC: LAB 14:54
PROVIDERS: ATTEND Specialist
DX: E11.9 Type 2 diabetes mellitus without complications (principal); E55.9 Vitamin D deficiency, unspecified; E03.9 Hypothyroidism, unspecified; E78.5 Hyperlipidemia, unspecified; D64.9 Anemia, unspecified; R78.89 Finding of other specified substances, not normally found in blood
CPT/HCPCS: 36415; 80053; 80061; 82306; 83036; 84443; 85025

== ENCOUNTER 2021-03-18 21:47 | Emergency (ER) | payer OTHER ==
[~2021-03-18] VITALS: Ht 172.7 cm; Wt 63.5 kg
[~2021-03-18 21:47] MED LIST changes: -CLOP75TA41 PO; +CLOP75TA70 PO; +TEMA15CA2 PO; -TEMA15CA91 PO
[2021-03-18 22:23] LABS: Basophils # (auto) 0 10 ^3/uL (0-0.2); Eosinophils # (auto) 0 10 ^3/uL (0-0.8); Lymphocytes # (auto) 0.2 10 ^3/uL (0.4-5.4)
[2021-03-18 22:27] LABS: Basophils % (auto) 0.2 % (0.0-2.0); Hematocrit 31.2 % (41.0-53.0); Lymphocytes % (auto) 1.2 % (10.0-50.0); Mean Corpuscular Hemoglobin 35.2 pg (28.0-32.0); Mean Corpuscular Hgb Conc. 35.4 g/dL (32.0-36.0); Mean Corpuscular Volume 99.5 fL (80.0-100.0); Monocytes # (auto) 0.5 10 ^3/uL (0-1.3); Monocytes % (auto) 3.6 % (0.0-12.0); Platelet Count (auto) 165 10^3/uL (140-450); Red Blood Cells 3.14 10^6/uL (4.5-5.90); Red Cell Distribution Width 15.2 % (11.8-14.3); White Blood Cell 14.8 10^3/uL (4.4-10.8)
[2021-03-18 22:43] LABS: INR 1.03 (0.9-1.15); Partial Thromboplastin Time 23.7 sec (23.0-31.2)
[2021-03-18 22:51] LABS: Albumin 4.1 g/dL (3.4-5.0); BUN/Creatinine Ratio 20.8; Calcium 8.3 mg/dL (8.5-10.1); Potassium 4.5 mmol/L (3.5-5.1)
[2021-03-18 22:56] LABS: Bilirubin, Total 0.8 mg/dL (0.2-1.0); Total Protein 7.7 g/dL (6.4-8.2)
[2021-03-19 07:55] VITALS: BP 155/70
[2021-03-19] MEDS ORDERED: LIDOCAINE 2% (LOCAL ANESTH.) PF 5ml SDV ONE (08:11)
[2021-03-19] MEDS ORDERED: cefTRIAXone 1GM/50ML D5W 50 ML IV ONE (08:15)
[2021-03-19] MEDS ORDERED: LIDOCAINE 2%HCL (LOCAL ANESTH.) INJ 10ml MDV IJ ONE (08:15)
[2021-03-19 08:18] LABS: Urine Bacteria NONE SEEN /hpf (None Seen); Urine Blood 1+ /uL (Negative); Urine Specific Gravity 1.018 (1.001-1.035); Urine WBC <1 /hpf (0 - 3)
[2021-03-19] MEDS ORDERED: TETANUS-DIPTH-ACEL PERTUSSIS 0.5ML SYR Tdap IM ONE (09:45)
== END 2021-03-19 10:13 | disposition home or self-care (01) ==
LOC: EDBD 21:47 → EDUNIT# 21:47 → ER 21:52
DX: S01.01XA Laceration without foreign body of scalp, initial encounter (principal); S09.8XXA Other specified injuries of head, initial encounter; D72.829 Elevated white blood cell count, unspecified; F03.90 Unspecified dementia, unspecified severity, without behavioral disturbance, psychotic disturbance, mood disturbance, and anxiety; I10 Essential (primary) hypertension; E11.9 Type 2 diabetes mellitus without complications; E78.5 Hyperlipidemia, unspecified; I25.2 Old myocardial infarction; Z86.73 Personal history of transient ischemic attack (TIA), and cerebral infarction without residual deficits; Z79.82 Long term (current) use of aspirin; Z79.899 Other long term (current) drug therapy; Z90.89 Acquired absence of other organs; Z95.1 Presence of aortocoronary bypass graft; Z95.0 Presence of cardiac pacemaker; W01.198A Fall on same level from slipping, tripping and stumbling with subsequent striking against other object, initial encounter; Y93.89 Activity, other specified; Y92.89 Other specified places as the place of occurrence of the external cause; Y99.8 Other external cause status
CPT/HCPCS: 12002; 36415; 70450; 71045; 72125; 80053; 81001; 84484; 85025; 85610; 85730; 90471; 90715; 93005; 96365; 99285; J0696; J2001